=== PATIENT | female | born 1945 | race Caucasian/White ===

== ENCOUNTER 2024-02-14 16:45 | Emergency (ER) | payer MEDICARE, OTHER ==
[2024-02-14] MEDS ORDERED: Morphine 4 MG/ML VIAL ONE (18:16)
[2024-02-14] MEDS ORDERED: Acetaminophen 500 MG TAB ONE (18:25)
== END 2024-02-14 21:22 | disposition home or self-care (01) ==
LOC: CSHERS 16:45
DX: S01.112A Laceration without foreign body of left eyelid and periocular area, initial encounter (principal); S20.212A Contusion of left front wall of thorax, initial encounter; I10 Essential (primary) hypertension; Z55.6 Problems related to health literacy; W19.XXXA Unspecified fall, initial encounter
CPT/HCPCS: 70450; 71045; 72170; J2272